=== PATIENT | female | born 1945 ===

== ENCOUNTER 2017-09-05 11:58 | Emergency (ER) | payer MEDICARE, MEDICAID ==
[2017-09-05 12:27] VITALS: BP 157/54; PULSE 77; RESP 22; TEMP 98; O2SAT 98
[2017-09-05] MEDS ORDERED: Methocarbamol 750 MG TAB PO STA (13:47)
--- NOTE | 2017-09-05 14:01 | ED PDOC ---
HPI: Back Time Seen by Provider: 09/05/17 13:15 Chief Complaint (Nursing): Back Pain Chief Complaint (Provider): Back Pain History Per: Patient History/Exam Limitations: no limitations Onset/Duration Of Symptoms: Worse Since (3 weeks ago) Current Symptoms Are (Timing): Still Present Previous Symptoms: Back Pain Additional Complaint(s): Katya is a 72 y/o female with a past medical history of chronic back pain with herniated discs, radiculopathy, hypertension, hypercholesterolemia, and hypothyroidism, presenting to the ER complaining of 3 week history of worsening left lower back pain that radiates into left buttock and down left leg. She reports intermittent associated paresthesias, but denies any currently. She reports history of similar pain in the past, and was evaluated by PMD in May 2017 and had an MRI demonstrating L4-L5 disc herniation. She notes she usually takes Gabapentin, Ibuprofen, and Tylenol for pain with some relief. She notes her last dose of Tylenol 650mg was today at 9AM. She notes pain worsened 3 weeks ago after patient bent down in shower, and felt a pull in the left lower back. Denies any bowl or bladder dysfunction. Pain worsens with movement. She denies any fever. PMD: Palomo Meeks Past Medical History Reviewed: Historical Data, Nursing Documentation, Vital Signs Vital Signs: Last Vital Signs Temp 98.0 F 09/05/17 12:26 Pulse 77 09/05/17 12:26 Resp 22 09/05/17 12:26 BP 157/54 H 09/05/17 12:26 Pulse Ox 98 09/05/17 12:26 - Medical History PMH: Arthritis, HTN, Hypercholesterolemia, Hypothyroidism, Chronic Pain (back) Other PMH: herniated discs, radiculopathy - Family History Family History: States: Unknown Family Hx - Social History Current smoker - smoking cessation education provided: No Alcohol: None Drugs: Denies - Home Medications Home Medications: Ambulatory Orders Medication Instructions Recorded Methocarbamol [Robaxin-750] 750 mg PO DAILY 5 Days #5 tablet 09/05/17 - Allergies Allergies/Adverse Reactions: Allergies Allergy/AdvReac Type Severity Reaction Status Date / Time aspirin Allergy VOMITING Verified 09/05/17 12:25 Penicillins Allergy VOMITING Verified 09/05/17 12:25 Review of Systems ROS Statement: Except As Marked, All Systems Reviewed And Found Negative Constitutional: Negative for: Fever, Chills Cardiovascular: Negative for: Chest Pain Gastrointestinal: Negative for: Nausea, Vomiting, Abdominal Pain Genitourinary Female: Negative for: Dysuria, Incontinence (of bowel or bladder) Musculoskeletal: Positive for: Back Pain, Leg Pain (left buttock and leg) Neurological: Negative for: Weakness, Numbness, Other (paresthesias) Physical Exam - Reviewed Nursing Documentation Reviewed: Yes Vital Signs Reviewed: Yes - Physical Exam Appears: Positive for: Non-toxic, No Acute Distress Head Exam: Positive for: ATRAUMATIC, NORMAL INSPECTION, NORMOCEPHALIC Skin: Positive for: Normal Color Neck: Positive for: Normal, Supple Back: Positive for: Normal Inspection, Other (Tender to left paralumbar, left SI , left buttock and left proximal thigh). Negative for: Vertebral Tenderness Extremity: Positive for: Other (Strength is 5/5 throughout. Sensation intact). Negative for: Normal ROM (Flexion at hips is limited secondary to pain), Pedal Edema, Deformity Neurologic/Psych: Positive for: Alert, Oriented. Negative for: Motor/Sensory Deficits - ECG O2 Sat by Pulse Oximetry: 98 (RA) Pulse Ox Interpretation: Normal Medical Decision Making Medical Decision Making: Time: 13:47 Initial Impression: Back pain secondary to sciatica Initial Plan: --Tylenol 650 mg PO --Robaxin 750 mg PO Patient with improvement of symptoms on reevaluation and is requesting to be discharged. She was advised to follow up with her PMD, and return to the ED for any worsening or change in symptoms which were communicated to her. She expresses understanding and agreement. Take medication as prescribed, apply warm compresses to the area, and limit strenuous activity. Patient ambulated in ED with steady gait. Scribe Attestation: Documented by Halley Montgomery, acting as a scribe for Deisi Reji PA-C Provider Scribe Attestation: All medical record entries made by the Scribe were at my direction and personally dictated by me. I have reviewed the chart and agree that the record accurately reflects my personal performance of the history, physical exam, medical decision making, and the department course for this patient. I have also personally directed, reviewed, and agree with the discharge instructions and disposition. Disposition - Clinical Impression Clinical Impression: Back pain, Sciatica - Patient ED Disposition Is Patient to be Admitted: No Counseled Patient/Family Regarding: Diagnosis, Need For Followup, Rx Given - Disposition Referrals: Ari Sorensen MD [Staff Provider] - [facility] [Outside] Disposition: Routine/Home Disposition Time: 14:42 Condition: STABLE Additional Instructions: Take medication as prescribed, limit strenuous activity, apply warmth, and f/u with PMD or orthopedist. Prescriptions: Methocarbamol [Robaxin-750] 750 mg PO DAILY 5 Days #5 tablet Instructions: Sciatica (ED), Lumbar Radiculopathy (ED), Back Pain (ED) Forms: [employer] [address] (Hungarian) Print Language: LATVIAN
== END 2017-09-05 14:51 | disposition home or self-care (01) ==
LOC: H.ER 11:58
DX: M54.30 Sciatica, unspecified side (principal); E03.9 Hypothyroidism, unspecified; E78.00 Pure hypercholesterolemia, unspecified; G89.29 Other chronic pain; I10 Essential (primary) hypertension; Z88.0 Allergy status to penicillin